=== PATIENT | male | born 1975 | race Caucasian/White ===

== ENCOUNTER 2020-03-27 10:44 | Emergency (ER) | payer BC, SELFPAY ==
[2020-03-27 11:00] VITALS: PULSE 66; RESP 18; TEMP 36.9; O2SAT 96; BMI 22.1
[2020-03-27 11:05] VITALS: BP 134/72; PULSE 63; RESP 18; O2SAT 97
[2020-03-27 11:06] VITALS: PULSE 68
--- NOTE | 2020-03-27 11:18 | ED_ITS ---
HPI - Extremity Problem General: Chief complaint: Extremity Injury, Upper Stated complaint: poss pulled muscle Time Seen by Provider: 03/27/20 11:08 Source: patient Mode of arrival: ambulatory Limitations: no limitations History of Present Illness: HPI Narrative: Patient is a 44-year-old male who works in a wound factory and presents to the emergency department with left shoulder pain that has been ongoing for about 4 days. The pain is kind of vague in location but radiates down to his proximal biceps on the left. Pain is worse at night. He denies any injuries and thinks he may have pulled something while at work. No prior history of shoulder issues. MD Complaint: extremity pain Onset (ago): day(s) (4) Pain Consistency: intermittent Location: left and upper extremity Severity scale (1-10): 7 Quality: sharp Radiation: proximal Relieving factors: nothing Exacerbating factors: range of motion and other (worse at night) Associated symptoms: Reports myalgias; Deny arthralgias, chest pain, fever(s), rash or short of breath Review of Systems General: Reports: 10 or more systems reviewed and unremarkable except in HPI and below Const: Denies: fever(s) Eyes: Denies: change in vision or blurry vision ENMT: Denies: throat pain, enlarged tonsils, odynophagia, hoarseness, mouth pain or swelling of lips/tongue Card: Denies: chest pain Resp: Denies: dyspnea, productive cough or non-productive cough GI: Denies: abdominal pain, nausea or vomiting : Denies: flank pain, dysuria, urinary frequency, urinary urgency or urinary hesitancy Musc: Reports: extremity pain; Denies: neck pain, back pain or extremity swelling Skin/Breast: Denies: rash Neuro: Denies: headache(s), numbness in extremities or weakness in extremities Endo: Denies: polyuria, polydipsia or tired all the time Physical Exam Const: COMMON NORMALS: no acute distress, average body habitus, patient oriented x3, no limitations, healthy appearing, alert and well nourished HENMT: COMMON NORMALS: normocephalic, atraumatic and moist oral mucous membranes HEAD & SCALP: normocephalic and atraumatic Neck/C-Spine: COMMON NORMALS: full ROM, supple, no meningeal signs, no JVD and No carotid bruits Resp: COMMON NORMALS: normal respiratory effort, No retractions, No use of accessory muscles, clear to auscultation bilaterally and percussion normal AUSCULTATION: clear to auscultation bilaterally PERCUSSION: percussion normal Cardio: COMMON NORMALS: no JVD, regular rate, regular rhythm, S1 normal heart sound present, S2 normal heart sound present, No gallops present (Cardio), No clicks present (Cardio), No murmurs present (Cardio), No rub (Cardio) and Peripheral pulses 2+ throughout RATE: regular rate RHYTHM: regular rhythm HEART SOUNDS: S1 normal heart sound present and S2 normal heart sound present PERIPHERAL PULSES: Peripheral pulses 2+ throughout GI: COMMON NORMALS: Normal to inspection, nondistended, normoactive bowel sounds present, Soft to palpation, non-tender, No hepatosplenomegaly present, no masses and no bruits PALPATION: Yes Soft to palpation and Yes No hepatosplenomegaly present Extremity: COMMON NORMALS: normal to inspection, full ROM, capillary refill normal, no calf tenderness and no pedal edema LEFT UPPER EXTREMITY: Yes shoulder joint Left shoulder joint: Yes special tests (shoulder exam equivocal) Left shoulder special tests: Empty can test: Negative, Drop arm test: Negative, Biceps load test: Positive, Neer impingement test: Positive and Acromioclavicular (AC) compression test: Negative Neuro: COMMON NORMALS: patient oriented x3 SENSORIUM/ORIENTATION: Yes alert MENINGEAL SIGNS: Yes no meningeal signs Course Vital Signs: Vital signs: Vital Signs Temperature 98.4 F 03/27/20 11:00 Pulse Rate 68 03/27/20 11:06 Respiratory Rate 18 03/27/20 11:05 Blood Pressure 134/72 03/27/20 11:05 Pulse Oximetry 97 03/27/20 11:05 MDM - Extremity (Nontraumatic) MDM Narrative: Medical decision making narrative: 44-year-old male with left shoulder pain. Evaluation in the emergency department is equivocal but leaning towards rotator cuff tendinitis. I offered him an intra-articular shoulder steroid injection for diagnosis/treatment but he declined. He declined oral steroids also. He said all he wants is a muscle relaxant and if his pain gets worse he will return for further evaluation and possibly a steroid injection. I will therefore discharge him home with a prescription for a muscle relaxant and he is to return for any concerns or follow-up with his primary care provider. He voiced understanding and is in agreement with the plan. Discharge Plan Discharge Patient Disposition: Home Clinical Impression: Acute pain of left shoulder Condition: Stable Prescriptions: New cyclobenzaprine 10 mg tablet 10 mg PO TID PRN (Reason: muscle spasm) Qty: 30 RF: 0 Discharge Orders: Discharge Order (Routine); Ordered 03/27/20 Ordered By: Ml Lyle Discharge Diet: Usual diet Discharge Activity: Increase activity as tolerated Patient Instructions: Shoulder Sprain (ED) Activity Restrictions/Additional Instructions: Return for any new or worsening symptoms. Follow-up with your primary care provider within 2 days. Take the medications as needed. Coding Level of Care Code ED [employer] Specialist for [employer] Fwd Exam Detailed
[2020-03-27 11:39] VITALS: BP 134/72; PULSE 71; RESP 16; O2SAT 98
== END 2020-03-27 11:43 | disposition home or self-care (01) ==
PROVIDERS: Emergency Provider Family Medicine
DX: M25.512 Pain in left shoulder (principal)
CPT/HCPCS: 12345; 99281